=== PATIENT | female | born 1960 | race Hispanic/Latino ===

== ENCOUNTER → 2017-06-06 | Outpatient (CLI) | payer OTHER, MEDICARE | END | disposition home or self-care (01) | LOC: RAH 10:08 | PROVIDERS: ATTEND Family Medicine | DX: Z12.31 Encounter for screening mammogram for malignant neoplasm of breast (principal) | CPT/HCPCS: 77067 ==

== ENCOUNTER → 2020-01-04 | Outpatient (CLI) | payer OTHER, MEDICARE | END | disposition home or self-care (01) | LOC: RAH 08:41 | PROVIDERS: ATTEND Family Medicine | DX: Z12.31 Encounter for screening mammogram for malignant neoplasm of breast (principal) | CPT/HCPCS: 77067 ==

== ENCOUNTER 2020-04-17 12:53 | Emergency (ER) | payer OTHER, MEDICARE ==
[2020-04-17] MEDS ORDERED: HYDROCODONE/ACETAMINOPHEN 10/325 MG TAB ONE (13:16)
== END 2020-04-17 13:31 | disposition home or self-care (01) ==
LOC: EDH 12:53
DX: B02.8 Zoster with other complications (principal); M19.90 Unspecified osteoarthritis, unspecified site; E78.00 Pure hypercholesterolemia, unspecified; Z90.49 Acquired absence of other specified parts of digestive tract

== ENCOUNTER 2021-04-03 14:09 | Emergency (ER) | payer OTHER, MEDICARE ==
[~2021-04-03] VITALS: Ht 152.4 cm; Wt 61.7 kg
[2021-04-03] MEDS ORDERED: FAMC500T8 PO (16:40)
[2021-04-03] MEDS ORDERED: GABA300C PO (16:40)
[2021-04-03] MEDS ORDERED: LIDO700A30 TP (16:40)
[2021-04-03] MEDS ORDERED: KETO10 PO (16:40)
[2021-04-03] MEDS ORDERED: GABAPENTIN 300 MG CAPSULE PO SCH (17:00)
[2021-04-03] MEDS ORDERED: CYCLOBENZAPRINE HCL 10 MG TABLET PO ONE (17:00)
[2021-04-03] MEDS ORDERED: HYDROCODONE/ACETAMINOPHEN 10/325 MG TAB PO ONE (17:00)
[2021-04-03 17:02] VITALS: BP 113/73
== END 2021-04-03 17:08 | disposition home or self-care (01) ==
LOC: EDH 14:09
DX: B02.23 Postherpetic polyneuropathy (principal); E11.9 Type 2 diabetes mellitus without complications; E78.00 Pure hypercholesterolemia, unspecified; I11.9 Hypertensive heart disease without heart failure; M19.90 Unspecified osteoarthritis, unspecified site

== ENCOUNTER → 2021-08-06 | Outpatient (CLI) | payer OTHER, MEDICARE ==
[~2021-08-06] MED LIST: FAMC500T8 PO; GABA300C PO; KETO10 PO; LIDO700A30 TP
== END | disposition home or self-care (01) ==
LOC: RAH 09:09
PROVIDERS: ATTEND Family Medicine
DX: R59.0 Localized enlarged lymph nodes (principal); Z79.01 Long term (current) use of anticoagulants
CPT/HCPCS: 38505; 76942; 88184; 88185; 88307; 88341; 88342; 88360

== ENCOUNTER 2021-11-27 10:34 | Emergency (ER) | payer OTHER, MEDICARE ==
[~2021-11-27] VITALS: Ht 152.4 cm; Wt 61.2 kg
[2021-11-27 11:04] VITALS: BP 142/64
== END 2021-11-27 11:23 | disposition home or self-care (01) ==
LOC: EDH 10:34
DX: U07.1 COVID-19 (principal); M19.90 Unspecified osteoarthritis, unspecified site; E11.9 Type 2 diabetes mellitus without complications; E78.00 Pure hypercholesterolemia, unspecified; I10 Essential (primary) hypertension; Z79.899 Other long term (current) drug therapy
CPT/HCPCS: 99283; 87635; 87880; 87804 ×2; C9803

== ENCOUNTER 2022-01-24 08:37 | Emergency (ER) | payer OTHER, MEDICARE ==
[~2022-01-24] VITALS: Ht 124.5 cm; Wt 57.2 kg
[2022-01-24] MEDS ORDERED: TRAM50TA4 PO (09:25)
[2022-01-24] MEDS ORDERED: AMOX1TAB16 PO (09:25)
[2022-01-24] MEDS ORDERED: AMOX/CLAV 875/125MG TAB PO ONE (09:30)
[2022-01-24] MEDS ORDERED: TRAMADOL HCL 50 MG TABLET PO ONE (09:30)
[2022-01-24 10:35] VITALS: BP 110/59
== END 2022-01-24 10:36 | disposition home or self-care (01) ==
LOC: EDH 08:37
DX: K04.7 Periapical abscess without sinus (principal); K08.89 Other specified disorders of teeth and supporting structures; I10 Essential (primary) hypertension; E78.00 Pure hypercholesterolemia, unspecified; E11.9 Type 2 diabetes mellitus without complications; M19.90 Unspecified osteoarthritis, unspecified site; Z79.1 Long term (current) use of non-steroidal anti-inflammatories (NSAID)

== ENCOUNTER 2022-04-27 16:26 | Emergency (ER) | payer OTHER, MEDICARE ==
[~2022-04-27] VITALS: Ht 152.4 cm; Wt 47.6 kg
[~2022-04-27 16:26] MED LIST changes: +AMOX1TAB16 PO; +TRAM50TA4 PO
[2022-04-27 16:42] VITALS: BP 102/69
[2022-04-27 18:05] LABS: BASOPHILS % (AUTO) 0.8 % (0.0-5.0); HEMATOCRIT 32.9 % (36-48); LYMPHOCYTES % (AUTO) 44.3 % (21.0-51.0); MEAN CORPUSCULAR HGB CONC 31.6 g/dL (32.0-36.0); MEAN CORPUSCULAR VOLUME 88.4 fL (79-99); NEUTROPHILS % (AUTO) 28.1 % (40.0-77.0); PLATELET COUNT (AUTO) 300 K/uL (130-400); RED BLOOD CELL COUNT(AUTO) 3.72 MIL/uL (4.00-5.50); RED CELL DISTRIBUTION WIDTH 17.2 % (11.0-15.5); WHITE BLOOD COUNT (AUTO) 1.3 K/uL (4.8-10.8)
[2022-04-27 18:12] LABS: CREATININE 0.9 mg/dL (0.5-1.5); POTASSIUM 4.1 mmol/L (3.5-5.1)
[2022-04-27 18:22] LABS: ALBUMIN 3.1 g/dL (3.5-5.0); TOTAL PROTEIN, SERUM 7.3 g/dL (6.0-8.3)
[2022-04-27] MEDS ORDERED: CEPH500B PO (18:24)
== END 2022-04-27 18:46 | disposition home or self-care (01) ==
LOC: EDH 16:26
DX: J02.0 Streptococcal pharyngitis (principal); D72.819 Decreased white blood cell count, unspecified; C85.90 Non-Hodgkin lymphoma, unspecified, unspecified site; E78.00 Pure hypercholesterolemia, unspecified; I11.9 Hypertensive heart disease without heart failure; E11.9 Type 2 diabetes mellitus without complications; M19.90 Unspecified osteoarthritis, unspecified site; Z90.49 Acquired absence of other specified parts of digestive tract; Z79.899 Other long term (current) drug therapy; Z98.890 Other specified postprocedural states; Z20.822 Contact with and (suspected) exposure to COVID-19
CPT/HCPCS: 99284; 84484; 80053; 85025; 87880; 87804 ×2; 36415; 87635; 93005; C9803

== ENCOUNTER 2022-05-01 13:12 | Emergency (ER) | payer OTHER, MEDICARE ==
[~2022-05-01] VITALS: Ht 134.6 cm; Wt 45.4 kg
[~2022-05-01 13:12] MED LIST changes: +CEPH500B PO
[2022-05-01 13:31] LABS: APPEARANCE,URINE CLEAR (CLEAR); BILIRUBIN,URINE NEGATIVE (NEGATIVE); COLOR,URINE LIGHT-YELLOW (YELLOW); GLUCOSE, URINE (UA) NEGATIVE (NEGATIVE); KETONES,URINE NEGATIVE (NEGATIVE); LEUKOCYTE ESTERASE ,URINE NEGATIVE Leu/uL (NEGATIVE); NITRATE,URINE NEGATIVE (NEGATIVE); OCCULT BLOOD,URINE NEGATIVE (NEGATIVE); PH,URINE 5.5 (5.0-8.0); PROTEIN,URINE NEGATIVE (NEGATIVE); UROBILINOGEN,URINE 0.2 mg/dL (0.2-1.0)
[2022-05-01] MEDS ORDERED: NIRM1TAB5 PO (14:03)
[2022-05-01 14:30] VITALS: BP 119/81
[2022-05-01] MEDS ORDERED: DEXAMETHASONE 4 MG TAB PO SCH (14:30)
[2022-05-01] MEDS ORDERED: ACETAMINOPHEN 500 MG TABLET PO ONE (14:30)
== END 2022-05-01 14:30 | disposition home or self-care (01) ==
LOC: EDH 13:12
DX: U07.1 COVID-19 (principal); E11.9 Type 2 diabetes mellitus without complications; E78.00 Pure hypercholesterolemia, unspecified; M19.90 Unspecified osteoarthritis, unspecified site; I11.9 Hypertensive heart disease without heart failure; Z90.49 Acquired absence of other specified parts of digestive tract
CPT/HCPCS: 87804 ×2; 81003; 87635; 99283; C9803; J8540

== ENCOUNTER 2022-12-07 09:33 | Emergency (ER) | payer OTHER, MEDICARE ==
[~2022-12-07] VITALS: Ht 160 cm; Wt 54.4 kg
[~2022-12-07 09:33] MED LIST changes: +NIRM1TAB5 PO
[2022-12-07 10:10] LABS: BASOPHILS # (AUTO) 0.01 K/uL (0.00-0.20); BASOPHILS % (AUTO) 0.3 % (0.0-5.0); EOSINOPHILS # (AUTO) 0.01 K/uL (0.00-0.70); EOSINOPHILS % (AUTO) 0.3 % (0.0-8.0); HEMATOCRIT 31.1 % (36-48); IMMATURE GRANULOCYTE ABSOLUTE 0.02 K/uL (0-1); LYMPHOCYTES # (AUTO) 0.6 K/uL (1.0-4.8); LYMPHOCYTES % (AUTO) 15.8 % (21.0-51.0); MEAN CORPUSCULAR HEMOGLOBIN 28.5 pg (27.0-33.0); MEAN CORPUSCULAR HGB CONC 30.5 g/dL (32.0-36.0); MEAN CORPUSCULAR VOLUME 93.4 fL (79-99); MONOCYTES # (AUTO) 0.5 K/uL (0.1-1.0); MONOCYTES % (AUTO) 12.3 % (3.0-13.0); NEUTROPHILS # (AUTO) 2.6 K/uL (1.8-7.7); NEUTROPHILS % (AUTO) 70.8 % (40.0-77.0); PLATELET COUNT (AUTO) 344 K/uL (130-400); RED BLOOD CELL COUNT(AUTO) 3.33 MIL/uL (4.00-5.50); RED CELL DISTRIBUTION WIDTH 16.4 % (11.0-15.5); WHITE BLOOD COUNT (AUTO) 3.7 K/uL (4.8-10.8)
[2022-12-07 10:19] LABS: POTASSIUM 5.4 mmol/L (3.5-5.1)
[2022-12-07 10:24] LABS: ALBUMIN 2.7 g/dL (3.5-5.0); BILIRUBIN,TOTAL 0.2 mg/dL (0.2-1.0); TOTAL PROTEIN, SERUM 7.1 g/dL (6.0-8.3)
[2022-12-07 10:26] LABS: APPEARANCE,URINE CLEAR (CLEAR); BILIRUBIN,URINE NEGATIVE (NEGATIVE); COLOR,URINE LIGHT-YELLOW (YELLOW); GLUCOSE, URINE (UA) NEGATIVE (NEGATIVE); KETONES,URINE NEGATIVE (NEGATIVE); LEUKOCYTE ESTERASE ,URINE 250 Leu/uL (NEGATIVE); NITRATE,URINE NEGATIVE (NEGATIVE); PROTEIN,URINE NEGATIVE (NEGATIVE); UROBILINOGEN,URINE 0.2 mg/dL (0.2-1.0)
[2022-12-07 10:29] LABS: ADD UA MICROSCOPIC YES
[2022-12-07] MEDS ORDERED: ACETAMINOPHEN 500 MG TABLET PO ONE (10:30)
[2022-12-07] MEDS ORDERED: LACTATED RINGERS 1000ML 1,000 ML IV ONE (10:30)
[2022-12-07 10:33] LABS: BACTERIA,URINE RARE /HPF (None Seen); SQUAMOUS EPITHELIAL CELL,UR FEW /HPF (0-2)
[2022-12-07] MEDS ORDERED: DEXTROSE 50%-WATER 25 GM/50 ML VIAL IV ONE (11:30)
[2022-12-07] MEDS ORDERED: INSULIN HUMULIN R 100 UNIT/ML 3ML IV ONE (11:30)
[2022-12-07] MEDS ORDERED: ALBUTEROL 0.083% 2.5 MG/3 ML INH IH SCH (11:30)
[2022-12-07] MEDS ORDERED: DEXTROSE 50%-WATER 50 ML DISP.SYRIN IV ONE (11:40)
[2022-12-07 11:58] VITALS: PULSE 72; RESP 19
[2022-12-07 12:07] LABS: INFLUENZA TYPE A Negative For Type A (NEGATIVE); INFLUENZA TYPE B Negative For Type B (NEGATIVE)
[2022-12-07] MEDS ORDERED: IOHEXOL-350 75 ML VIAL IV ONE (13:57)
[2022-12-07] MEDS ORDERED: ASPIRIN 325MG TAB PO ONE (17:00)
[2022-12-07] MEDS ORDERED: CEFTRIAXONE 1G VIAL IVPB ONE (17:30)
[2022-12-07] MEDS ORDERED: CEFTRIAXONE 1G VIAL ONE (17:33)
[2022-12-07 18:56] VITALS: BP 138/77; PULSE 95; RESP 17; O2SAT 98
== END 2022-12-07 16:55 | disposition short-term general hospital (02) ==
LOC: EDH 09:33
DX: I63.9 Cerebral infarction, unspecified (principal); E87.1 Hypo-osmolality and hyponatremia; R74.01 Elevation of levels of liver transaminase levels; I31.39 Other pericardial effusion (noninflammatory); E87.20 Acidosis, unspecified; N39.0 Urinary tract infection, site not specified; E87.5 Hyperkalemia; Z79.624 Long term (current) use of inhibitors of nucleotide synthesis; Z20.822 Contact with and (suspected) exposure to COVID-19
CPT/HCPCS: 99285; 70450; 96365; 96361; 96375; 87426; 80053; 82140; 85025; 87040 ×2; 87088; 87804 ×2; 83605; 81001; 36415; 74177; 93005; 94640; J1815; J7120; J7070 ×2; J0696; Q9967